=== PATIENT | male | born 1995 | race Caucasian/White ===

== ENCOUNTER 2020-01-31 17:39 | Emergency (ER) | payer SELFPAY ==
[~2020-01-31] VITALS: Ht 177.8 cm; Wt 75.0 kg
[2020-01-31 17:51] VITALS: BP 120/80
== END 2020-01-31 18:57 | disposition home or self-care (01) ==
LOC: ER 17:39
DX: T73.0XXA Starvation, initial encounter (principal); R53.1 Weakness
CPT/HCPCS: 93005; 99283